=== PATIENT | male | born 1965 ===

== ENCOUNTER 2018-03-22 12:59 | Inpatient (IN) | payer BC, OTHER ==
[2018-03-22 13:04] VITALS: BMI 27.0
[2018-03-22] MEDS ORDERED: Sodium Chloride 0.9% 1,000 ML IV ONE (13:10)
[2018-03-22] MEDS ORDERED: Sodium Chloride 0.9% 1,000 ML ONE ×2 (13:30→20:32)
[2018-03-22 13:35] LABS: BASO % 0.4 % (0.0-2.0); EOS % 0.1 % (0.0-4.0); HEMOGLOBIN 15.2 g/dL (12.0-18.0); LYMPH # 1.8 K/uL (1.0-4.3); LYMPH % 14.3 % (20.0-40.0); MEAN CORPUSCULAR HEMOGLOBIN 32.4 pg (27.0-31.0); MEAN CORPUSCULAR HGB CONC 34.6 g/dL (33.0-37.0); MEAN PLATELET VOLUME 7.4 fL (7.2-11.7); MONO # 0.3 K/uL (0.0-0.8); MONO % 2.3 % (0.0-10.0); NEUT # 10.7 K/uL (1.8-7.0); NEUT % 82.9 % (50.0-75.0); RBC 4.7 Mil/uL (4.40-5.90); RED CELL DISTRIBUTION WIDTH 12.8 % (11.5-14.5); WHITE BLOOD COUNT 12.9 K/uL (4.8-10.8)
[2018-03-22 13:36] LABS: MEAN CELL VOLUME 93.5 fL (80.0-94.0)
[2018-03-22 13:38] LABS: SQUAMOUS EPITHIAL < 1 /hpf (0-5); URINE BILIRUBIN NEGATIVE (NEGATIVE); URINE BLOOD NEGATIVE (NEGATIVE); URINE CLARITY Clear (Clear); URINE COLOR Yellow (YELLOW); URINE GLUCOSE (UA) NORMAL (Normal); URINE LEUKOCYTE ESTERASE NEG Leu/uL (Negative); URINE PROTEIN NEGATIVE (NEGATIVE); URINE UROBILINOGEN NORMAL mg/dL (0.2-1.0)
[2018-03-22 13:56] LABS: ALB/GLOB RATIO 1.5 (1.0-2.1); ALBUMIN 4.5 g/dL (3.5-5.0); ALT/SGPT 32 U/L (21-72); AST/SGOT 25 U/L (17-59); BLOOD UREA NITROGEN 21 mg/dL (9-20); CALCIUM 10.7 mg/dl (8.6-10.4); GFR AFRICAN-AMERICAN > 60; GFR NON-AFRICAN AMERICAN > 60; LIPASE 71 U/L (23-300)
--- NOTE | 2018-03-22 14:05 | C.PDOC ---
History Of Present Illness 53 year old male with history of gluten intolerance presenting to ED complaining of epigastric and upper left/right abdominal pain since this morning. He states he ate pizza last night. Patient also feels nauseous, had loose bowel movement, and took pepto bismol with no relief. Patient tried to take an damion seltzer and vomited. Of note, patient has had intolerance in the past, but never this severe. Denies fever, blood in stool, shortness of breath. Time Seen by Provider: 03/22/18 13:04 Chief Complaint (Nursing): Abdominal Pain History Per: Patient History/Exam Limitations: no limitations Onset/Duration Of Symptoms: Hrs Current Symptoms Are (Timing): Still Present Context: Food Location Of Pain/Discomfort: Epigastric, Other (upper left/right abdomen) Radiation Of Pain To:: None Quality Of Discomfort: Cramping Associated Symptoms: Nausea, Vomiting, Diarrhea. denies: Fever Recent travel outside of the [place]: No Past Medical History Reviewed: Historical Data, Nursing Documentation, Vital Signs Vital Signs: Last Vital Signs Temp 98.7 F 03/22/18 19:29 Pulse 75 03/22/18 19:29 Resp 16 03/22/18 19:29 BP 127/71 03/22/18 19:29 Pulse Ox 100 03/22/18 19:31 Surgical History: No Surg Hx Family History: States: No Known Family Hx - Social History Hx Alcohol Use: Yes Hx Substance Use: Yes - Immunization History Hx Tetanus Toxoid Vaccination: Yes Hx Influenza Vaccination: No Hx Pneumococcal Vaccination: No Review Of Systems Constitutional: Negative for: Fever Cardiovascular: Negative for: Chest Pain Respiratory: Negative for: Shortness of Breath Gastrointestinal: Positive for: Nausea, Vomiting, Abdominal Pain (epigastric. Upper left/right), Diarrhea Genitourinary: Negative for: Frequency Neurological: Negative for: Weakness, Numbness Physical Exam - Physical Exam Appears: Non-toxic Skin: Warm, Dry Head: Atraumatic, Normacephalic Eye(s): bilateral: Normal Inspection Oral Mucosa: Moist Chest: Symmetrical Cardiovascular: Rhythm Regular Respiratory: Normal Breath Sounds Gastrointestinal/Abdominal: Tenderness (epigastric), No Guarding Neurological/Psych: Oriented x3 Gait: Steady ED Course And Treatment - Laboratory Results Result Diagrams: 03/22/18 13:33 03/22/18 13:33 Lab Interpretation: Abnormal (WBC elevated 12.9 with left shift, BUN 21, normal LFTs and Lipase) O2 Sat by Pulse Oximetry: 100 (RA) Pulse Ox Interpretation: Normal - CT Scan/US US abdomen Other Rad Studies (CT/US): Read By Radiologist, Radiology Report Reviewed CT/US Interpretation: FINDINGS: LIVER: Measures 15.9 cm. Normal echogenicity of the liver parenchyma. No mass. No intrahepatic bile duct dilatation. GALLBLADDER: Gallbladder is mildly distended but otherwise unremarkable appearing. COMMON BILE DUCT: Measures 3.0 mm. No stones. No dilatation. PANCREAS: Pancreas is completely obscured by overlying bowel/stomach gas. RIGHT KIDNEY: Measures 10.9cm. Normal echogenicity. No calculus, mass, or hydronephrosis. LEFT KIDNEY: Measures 10.6cm. Normal echogenicity. No calculus , mass, or hydronephrosis. SPLEEN: Normal in size and contour, measuring 8.3 cm. No mass. AORTA: No aneurysmal dilatation. IVC: Unremarkable. OTHER FINDINGS: None. IMPRESSION: Pancreas completely obscured by overlying gastrointestinal gas. There is moderate gallbladder distention with the gallbladder otherwise unremarkable appearing. Remainder the examination appears unremarkable. Progress Note: 3:30 Patient c/o mild improvement after Bentyl but now has recurrent pain with vomiting. Still has epigastric pain. Abdomen remains overall soft. Protonix and Pepcid ordered. Called Dr. Wilson 19:04. Automated message left number to call in order to page physician([phone]). That number was called and I was put on hold. 19:12 phone was answered and informed the physician will be paged and will call [facility] [place] back. Reevaluation Time: 19:30 Reassessment Condition: Improved (After Toradol. NGT ordered.) - Physician Consult Information Time Consulting Physician Contacted: 19:30 Physician Contacted: Jung Wilson Outcome Of Conversation: Patient to be admitted to his service for a proximal small bowel obstruction. Procedure: Blank - Time Time Performed: 19:53 - Procedure Procedure:: NGT insertion - Consent obtained: Consent obtained: Verbal - Performed by: Performed by:: Attending physician - Indications Indications(s):: bowel obstruction - Contraindications: Contraindications:: None - Patient Position Patient Position:: Sitting - Result Result: Successful - Patient Tolerated Procedure Patient Tolerated Procedure:: Well Medical Decision Making Medical Decision Making: Impression: epigastric abdominal pain Plan: * labs * Bentyl * Zofran * IV fluids * Urinalysis * Ultra Sound abdomen complete Disposition - Disposition Disposition: HOSPITALIZED Disposition Time: 19:31 Condition: STABLE - POA Present On Arrival: None - Clinical Impression Clinical Impression: Small bowel obstruction - Scribe Statement The provider has reviewed the documentation as recorded by the Walt Jade Provider Attestation: All medical record entries made by the Walt were at my direction and personally dictated by me. I have reviewed the chart and agree that the record accurately reflects my personal performance of the history, physical exam, medical decision making, and the department course for this patient. I have also personally directed, reviewed, and agree with the discharge instructions and disposition.
--- NOTE | 2018-03-22 15:07 | US ---
Date of service: 03/22/2018 HISTORY: abd pain COMPARISON: None. TECHNIQUE: Sonographic evaluation of the abdomen. FINDINGS: LIVER: Measures 15.9 cm. Normal echogenicity of the liver parenchyma. No mass. No intrahepatic bile duct dilatation. GALLBLADDER: Gallbladder is mildly distended but otherwise unremarkable appearing. COMMON BILE DUCT: Measures 3.0 mm. No stones. No dilatation. PANCREAS: Pancreas is completely obscured by overlying bowel/stomach gas. RIGHT KIDNEY: Measures 10.9cm. Normal echogenicity. No calculus, mass, or hydronephrosis. LEFT KIDNEY: Measures 10.6cm. Normal echogenicity. No calculus, mass, or hydronephrosis. SPLEEN: Normal in size and contour, measuring 8.3 cm. No mass. AORTA: No aneurysmal dilatation. IVC: Unremarkable. OTHER FINDINGS: None. IMPRESSION: Pancreas completely obscured by overlying gastrointestinal gas. There is moderate gallbladder distention with the gallbladder otherwise unremarkable appearing. Remainder the examination appears unremarkable.
[2018-03-22] MEDS ORDERED: Iohexol 240 (50 ml) PO ONE (16:52)
[2018-03-22] MEDS ORDERED: Iohexol 240 (50 ml) ONE (16:55)
[2018-03-22] MEDS ORDERED: Iodixanol 320 MG/ML 100 ML BOTTLE IV ONE (18:10)
[2018-03-22] MEDS ORDERED: Morphine 4 MG/ML VIAL IV STA (20:25)
[2018-03-22] MEDS: Sodium Chloride 0.9% 1,000 ML IV SCH (20:32)
[2018-03-22 22:27] LABS: ABG ALLEN TEST POS; ARTERIAL BLOOD GAS HCO3 24.7 mmol/L (21-28); ARTERIAL BLOOD GAS O2 SAT 97.6 % (95-98); ARTERIAL BLOOD GAS PCO2 37 mm/Hg (35-45); ARTERIAL BLOOD GAS PH 7.42 (7.35-7.45); ARTERIAL BLOOD GAS PO2 76 mm/Hg (80-100); ARTERIAL BLOOD GAS TCO2 25.1 mmol/L (22-28)
[2018-03-22 22:32] LABS: INR 1.2; PROTHROMBIN TIME 12.8 SECONDS (9.7-12.2)
--- NOTE | 2018-03-22 23:05 | CP.PCM.HP ---
<Diamond Segundo - Last Filed: 03/22/18 23:45> History of Present Illness - History of Present Illness History of Present Illness: SURGERY HISTORY & PHYSICAL FOR DR. CALDERA 53M with PMHx of GERD, IBS, gluten intolerance presents to ED with abdominal pain. Pt states the pain began this AM in the epigastric region. It was crampy. He took pepto bismol and damion seltzer without relief. He reports loose non bloody stool x2 and vomiting x2. Last flatus this AM. Pt reports that he has gluten intolerance (but not celiac disease) and he avoids foods with gluten and dairy most of the time. However, last night, he had pizza and IPA beer which he believes may have contributed to his symptoms. PMHx: GERD, IBS, gluten intolerance Surgeries: EGD & colonoscopy 2 years ago- normal per pt Allergies: none Meds: multivitamin Sochx: smoke 3 cigarettes per day, drinks 1-2 liquor drinks per day and 5-6 on weekends at social functions Present on Admission - Present on Admission Any Indicators Present on Admission: No Review of Systems - Review of Systems All systems: reviewed and no additional remarkable complaints except (as per hpi ) Past Patient History - Past Medical History & Family History Past Medical History?: Yes - Past Social History Smoking Status: Current Some Days Smoker Alcohol: > 2 Drinks/Day Drugs: Denies Home Situation {Lives}: With Family - MUSCULOSKELETAL/RHEUMATOLOGICAL Hx Falls: No - GASTROINTESTINAL Hx Gastroesophageal Reflux: Yes Hx Irritable Bowel: Yes - PSYCHIATRIC Hx Substance Use: Yes (social) - SURGICAL HISTORY Hx Surgeries: No - ANESTHESIA Hx Anesthesia: No Hx Anesthesia Reactions: No Hx Malignant Hyperthermia: No Meds Allergies/Adverse Reactions: Allergies Allergy/AdvReac Type Severity Reaction Status Date / Time No Known Allergies Allergy Verified 03/22/18 13:04 Physical Exam - Constitutional Appears: Well, Non-toxic, No Acute Distress - Head Exam Head Exam: ATRAUMATIC, NORMAL INSPECTION - Eye Exam Eye Exam: EOMI, Normal appearance - Respiratory Exam Respiratory Exam: NORMAL BREATHING PATTERN. absent: Respiratory Distress - Cardiovascular Exam Cardiovascular Exam: +S1, +S2 - GI/Abdominal Exam GI & Abdominal Exam: Soft, Tenderness (mild epigastric tenderness). absent: Distended, Firm, Guarding, Hernia, Rebound, Rigid - Neurological Exam Neurological exam: Alert, CN II-XII Intact, Oriented x3 - Psychiatric Exam Psychiatric exam: Normal Affect, Normal Mood - Skin Skin Exam: Dry, Normal Color, Warm Results - Vital Signs Recent Vital Signs: Last Vital Signs Temp 98.5 F 03/22/18 21:42 Pulse 95 H 03/22/18 21:42 Resp 20 03/22/18 21:42 BP 126/83 03/22/18 21:42 Pulse Ox 95 03/22/18 21:42 - Labs Result Diagrams: 03/22/18 13:33 03/22/18 13:33 Labs: Laboratory Results - last 24 hr 03/22/18 03/22/18 03/22/18 13:33 13:33 13:33 WBC 12.9 H RBC 4.70 Hgb 15.2 Hct 44.0 MCV 93.5 D MCH 32.4 H MCHC 34.6 RDW 12.8 Plt Count 283 MPV 7.4 Neut % (Auto) 82.9 H Lymph % (Auto) 14.3 L [place] % (Auto) 2.3 Eos % (Auto) 0.1 Baso % (Auto) 0.4 Neut # (Auto) 10.7 H Lymph # (Auto) 1.8 [place] # (Auto) 0.3 Eos # (Auto) 0.0 Baso # (Auto) 0.0 PT INR APTT Puncture Site pCO2 pO2 HCO3 ABG pH ABG Total CO2 ABG O2 Saturation ABG Base Excess Adam Test ABG Potassium A-a O2 Difference Respiratory Index Glucose Lactate Liter Flow FiO2 Sodium 142 Potassium 4.5 Chloride 100 Carbon Dioxide 31 H Anion Gap 16 BUN 21 H Creatinine 0.8 Est GFR ( Amer) > 60 Est GFR (Non-Af Amer) > 60 Random Glucose 111 H Calcium 10.7 H Total Bilirubin 0.5 AST 25 ALT 32 Alkaline Phosphatase 68 Total Protein 7.6 Albumin 4.5 Globulin 3.1 Albumin/Globulin Ratio 1.5 Lipase 71 Arterial Blood Potassium Urine Color Yellow Urine Clarity Clear Urine pH 5.0 Ur Specific [place] 1.024 Urine Protein Negative Urine Glucose (UA) Normal Urine Ketones Negative Urine Blood Negative Urine Nitrate Negative Urine Bilirubin Negative Urine Urobilinogen Normal Ur Leukocyte Esterase Neg Urine RBC (Auto) 1 Ur Squamous Epith Cells < 1 03/22/18 03/22/18 22:21 22:25 WBC RBC Hgb Hct MCV MCH MCHC RDW Plt Count MPV Neut % (Auto) Lymph % (Auto) [place] % (Auto) Eos % (Auto) Baso % (Auto) Neut # (Auto) Lymph # (Auto) [place] # (Auto) Eos # (Auto) Baso # (Auto) PT 12.8 H INR 1.2 APTT 31 Puncture Site Rba pCO2 37 pO2 76 L HCO3 24.7 ABG pH 7.42 ABG Total CO2 25.1 ABG O2 Saturation 97.6 ABG Base Excess -0.2 Adam Test Pos ABG Potassium 3.6 A-a O2 Difference 27.0 Respiratory Index 0.4 Glucose 125 H Lactate 1.0 Liter Flow 0 FiO2 21.0 Sodium 138.0 Potassium Chloride 104.0 Carbon Dioxide Anion Gap BUN Creatinine Est GFR ( Amer) Est GFR (Non-Af Amer) Random Glucose Calcium Total Bilirubin AST ALT Alkaline Phosphatase Total Protein Albumin Globulin Albumin/Globulin Ratio Lipase Arterial Blood Potassium 3.6 Urine Color Urine Clarity Urine pH Ur Specific [place] Urine Protein Urine Glucose (UA) Urine Ketones Urine Blood Urine Nitrate Urine Bilirubin Urine Urobilinogen Ur Leukocyte Esterase Urine RBC (Auto) Ur Squamous Epith Cells Assessment & Plan - Assessment and Plan (Free Text) Assessment: 53M with PMHx of GERD, IBS, gluten intolerance presents with abdominal pain. DDx SBO vs enteritis vs mesenteric adenitis - Afebrile, VSS - WBC 12.9 - ABG WNL, Lactate normal - CT: small hiatal hernia, dilated loops of small bowel with air fluid levels & adjacent mesenteric edema/stranding - Keep NPO with IV fluids - NG tube placed - Zosyn - Pain medication PRN - Serial abdominal exams - Plan discussed with Dr. Steve Segundo PGY-4 <Jung Caldera - Last Filed: 03/25/18 10:27> Results - Vital Signs Recent Vital Signs: Last Vital Signs Temp 97.3 F L 03/24/18 15:00 Pulse 62 03/24/18 15:00 Resp 20 03/24/18 15:00 BP 158/82 H 03/24/18 15:00 Pulse Ox 100 03/24/18 15:00 - Labs Result Diagrams: 03/24/18 14:00 03/24/18 14:00 Labs: Laboratory Results - last 24 hr 03/24/18 03/24/18 14:00 14:00 WBC 6.9 RBC 4.51 Hgb 14.4 Hct 42.8 MCV 94.8 H MCH 32.0 H MCHC 33.8 RDW 13.2 Plt Count 229 MPV 7.8 Neut % (Auto) 60.0 Lymph % (Auto) 32.0 [place] % (Auto) 6.4 Eos % (Auto) 0.7 Baso % (Auto) 0.9 Neut # (Auto) 4.1 Lymph # (Auto) 2.2 [place] # (Auto) 0.4 Eos # (Auto) 0.0 Baso # (Auto) 0.1 Sodium 142 Potassium 3.7 Chloride 102 Carbon Dioxide 26 Anion Gap 17 BUN 15 Creatinine 0.9 Est GFR ( Amer) > 60 Est GFR (Non-Af Amer) > 60 Random Glucose 117 H Calcium 8.9 Phosphorus 3.4 Magnesium 1.8 Assessment & Plan - Assessment and Plan (Free Text) Plan: I personally saw and examined the patient with the resident staff and agree with the above assessment and plan. I personally reviewed the available diagnostic images and imaging reports. First episode of acute onset severe epigastric pain after week long of binge eating and drinking outside of normal diet. CT scan does show proximal dilated loops and edema, as well as enhancement of colonic mucosa. No previous surgical history but does have IBS, gluten sensitivey, lactose intolerance. It is possible that this could be some type of internal hernia (rare), but more likely enteropathy, IBD, or possible eosinophillic enteritis. For now he feels much better since having NGT placed and decompressing upper GIT. Abd is soft, non-distended and non-tender currently. Continue NGT, NPI, IVF, Antibiotics. - Date & Time Date: 03/22/18 Time: 23:15
[2018-03-22] MEDS: Piperacill/Tazo 3.375gm in Dex 3.375 GM/50 ML BAG IVPB SCH (23:09)
[2018-03-23] MEDS: Piperacill/Tazo 3.375gm in Dex 3.375 GM/50 ML BAG IVPB SCH ×4 (04:00→21:49)
[2018-03-23] MEDS: Sodium Chloride 0.9% 1,000 ML IV SCH ×4 (04:17→21:07)
--- NOTE | 2018-03-23 08:21 | RAD ---
Date of service: 03/22/2018 HISTORY: NG tube placement COMPARISON: Noncontrast chest CT 02/21/2017. FINDINGS: Nasogastric tube is identified coiled in the abdomen. LUNGS: No active pulmonary disease. PLEURA: No significant pleural effusion identified, no pneumothorax apparent. CARDIOVASCULAR: Normal. OSSEOUS STRUCTURES: No significant abnormalities. VISUALIZED UPPER ABDOMEN: Normal. OTHER FINDINGS: None. IMPRESSION: No definite acute cardiopulmonary disease.
[2018-03-23 08:56] LABS: BASO # 0.1 K/uL (0.0-0.2); BASO % 0.7 % (0.0-2.0); EOS % 0.2 % (0.0-4.0); HEMOGLOBIN 13.7 g/dL (12.0-18.0); LYMPH # 2.7 K/uL (1.0-4.3); LYMPH % 22.3 % (20.0-40.0); MEAN CELL VOLUME 93.8 fL (80.0-94.0); MEAN CORPUSCULAR HEMOGLOBIN 32.7 pg (27.0-31.0); MEAN CORPUSCULAR HGB CONC 34.8 g/dL (33.0-37.0); MEAN PLATELET VOLUME 7.9 fL (7.2-11.7); MONO % 8.3 % (0.0-10.0); NEUT # 8.3 K/uL (1.8-7.0); NEUT % 68.5 % (50.0-75.0); RBC 4.19 Mil/uL (4.40-5.90); RED CELL DISTRIBUTION WIDTH 13.3 % (11.5-14.5); WHITE BLOOD COUNT 12.1 K/uL (4.8-10.8)
[2018-03-23 09:06] LABS: BLOOD UREA NITROGEN 22 mg/dL (9-20); CALCIUM 8.6 mg/dl (8.6-10.4); GFR AFRICAN-AMERICAN > 60; GFR NON-AFRICAN AMERICAN > 60
--- NOTE | 2018-03-23 10:24 | CP.PCM.PN ---
Subjective - Date & Time of Evaluation Date of Evaluation: 03/23/18 Time of Evaluation: 07:00 - Subjective Subjective: SURGERY PROGRESS NOTE FOR DR. CALDERA Patient seen examined at bedside. Pt reports passing a lot of flatus. He had a small watery BM last night. Denies nausea or vomiting. Denies abdominal pain but feels "sore". Ambulating to the bathroom. Objective - Vital Signs/Intake and Output Vital Signs (last 24 hours): Temp Pulse Resp BP Pulse Ox 98.0 F 72 20 122/80 95 03/23/18 07:00 03/23/18 07:00 03/23/18 07:00 03/23/18 07:00 03/23/18 07:00 Intake and Output: 03/23/18 03/23/18 06:59 18:59 Intake Total 1000 Output Total 800 Balance 200 - Medications Medications: Current Medications Sodium Chloride (Sodium Chloride 0.9%) 1,000 mls @ 125 mls/hr IV .Q8H [facility] Last Admin: 03/23/18 07:02 Dose: 125 mls/hr Piperacillin Sod/Tazobactam Sod (Zosyn 3.375 Gm Iv Premix) 3.375 gm in 50 mls @ 100 mls/hr IVPB Q6H [facility] PRN Reason: Protocol Last Admin: 03/23/18 04:00 Dose: 100 mls/hr Ketorolac Tromethamine (Toradol) 30 mg IVP Q6 PRN PRN Reason: Pain, moderate (4-7) Morphine Sulfate (Morphine) 2 mg IVP Q4H PRN PRN Reason: Pain, severe (8-10) Last Admin: 03/23/18 04:08 Dose: 2 mg Ondansetron HCl (Zofran Inj) 4 mg IVP Q4H PRN PRN Reason: Nausea/Vomiting Pantoprazole Sodium (Protonix Inj) 40 mg IVP DAILY [facility] - Labs Labs: 03/23/18 08:46 03/23/18 08:46 PT 12.8 SECONDS (9.7-12.2) H 03/22/18 22:21 INR 1.2 03/22/18 22:21 APTT 31 SECONDS (21-34) 03/22/18 22:21 - Constitutional Appears: Well, Non-toxic, No Acute Distress - Head Exam Head Exam: ATRAUMATIC, NORMAL INSPECTION - Eye Exam Eye Exam: EOMI, Normal appearance - Respiratory Exam Respiratory Exam: NORMAL BREATHING PATTERN. absent: Respiratory Distress - Cardiovascular Exam Cardiovascular Exam: +S1, +S2 - GI/Abdominal Exam GI & Abdominal Exam: Soft. absent: Distended, Firm, Guarding, Rigid, Tenderness , Rebound Additional comments: NG tube in place with 500cc output since insertion - Neurological Exam Neurological Exam: Alert, Awake, Oriented x3 - Psychiatric Exam Psychiatric exam: Normal Affect, Normal Mood - Skin Skin Exam: Dry, Warm Assessment and Plan - Assessment and Plan (Free Text) Assessment: 53M with PMHx of GERD, IBS, gluten intolerance presents with abdominal pain. DDx SBO vs enteritis vs mesenteric adenitis - Afebrile, VSS - WBC 12.1 today - ABG WNL, Lactate normal - Keep NPO with IV fluids - Pt had + flatus and BM - May clamp NG tube, check residuals in 4 hours and remove if low residuals - Continue Zosyn - Serial abdominal exams - Discussed case with Dr. Ordoñez, pt's GI doctor. Pt may follow up with him in his office on Saturday - Plan discussed with Dr. Steve Segundo PGY-4
--- NOTE | 2018-03-23 11:14 | CT ---
Date of service: 03/22/2018 PROCEDURE: CT Abdomen and Pelvis with contrast HISTORY: epigastric abdominal pain COMPARISON: None. TECHNIQUE: Following oral and intravenous contrast administration, a CT examination of the abdomen and pelvis performed from the domes of the diaphragms to the symphysis pubis with reformatted datasets provided not only axial but also sagittal and coronal series. Contrast dose: Visipaque 320, 100 cc Radiation dose: Total exam DLP = 813.18 mGy-cm. This CT exam was performed using one or more of the following dose reduction techniques: Automated exposure control, adjustment of the mA and/or kV according to patient size, and/or use of iterative reconstruction technique. FINDINGS: LOWER THORAX: Unremarkable. LIVER: Unremarkable. No gross lesion or ductal dilatation. GALLBLADDER AND BILE DUCTS: Unremarkable. PANCREAS: Unremarkable. No gross lesion or ductal dilatation. SPLEEN: Unremarkable. ADRENALS: Unremarkable. No mass. KIDNEYS AND URETERS: Unremarkable. No hydronephrosis. No solid mass. VASCULATURE: Unremarkable. No aortic aneurysm. BOWEL: Central small bowel loops appear distended with fluid and a limited amount of gas. The stomach is distended with retained oral contrast contrast material. Edematous changes seen in the central small bowel Mesentery with distal large and small bowel collapse. The findings are most compatible with a central small-bowel obstruction, possibly due to an internal hernia. Diminished density of the gamboa of small-bowel may indicate ischemia. Clinically correlate further. Note is made of fatty sub mucosal changes throughout the colon which may reflect chronic inflammatory bowel process. APPENDIX: Normal appendix. PERITONEUM: Trace ascites identified in the pelvis. No free intra peritoneal gas. LYMPH NODES: Unremarkable. No enlarged lymph nodes. BLADDER: Unremarkable. REPRODUCTIVE: Unremarkable. BONES: No acute fracture. OTHER FINDINGS: None. IMPRESSION: 1. Findings suggests of a central small bowel obstruction, possibly by an internal hernia. Central small bowel mesenteric edema with limited pelvic ascites noted. Ischemic changes in distended small bowel loops are not completely excluded and further clinical correlation is advised. 2. Submucosal fatty changes throughout the colon may indicate inflammatory bowel disease. Concordant preliminary report from [facility], 03/22/2018. Further, pertinent findings were discussed with Dr. pam adams by Dr. Lopez (from [facility]) with written down and read back verification 03/22/2018 6:52 p.m..
[2018-03-24] MEDS: Sodium Chloride 0.9% 1,000 ML IV SCH ×2 (02:15→04:45)
[2018-03-24] MEDS: Piperacill/Tazo 3.375gm in Dex 3.375 GM/50 ML BAG IVPB SCH ×3 (04:20→17:37)
--- NOTE | 2018-03-24 10:32 | CP.PCM.PN ---
<Diamond Segundo - Last Filed: 03/24/18 10:33> Subjective - Date & Time of Evaluation Date of Evaluation: 03/24/18 Time of Evaluation: 06:00 - Subjective Subjective: GENERAL SURGERY PROGRESS NOTE FOR DR. CALDERA Patient seen and examined at bedside. Yesterday, the NG tube was removed and patient was advanced to CLD. Pt is tolerating CLD. Denies nausea or vomiting. He is passing a lot of flatus. No Bm since the night of admission. Pt denies abdominal pain. He is ambulating in the halls. Objective - Vital Signs/Intake and Output Vital Signs (last 24 hours): Temp Pulse Resp BP Pulse Ox 98.1 F 63 18 123/78 98 03/24/18 07:20 03/24/18 07:20 03/24/18 07:20 03/24/18 07:20 03/24/18 07:20 Intake and Output: 03/24/18 03/24/18 06:59 18:59 Intake Total 1200 Output Total 700 Balance 500 - Medications Medications: Current Medications Sodium Chloride (Sodium Chloride 0.9%) 1,000 mls @ 125 mls/hr IV .Q8H [facility] Last Admin: 03/24/18 04:45 Dose: Not Given Piperacillin Sod/Tazobactam Sod (Zosyn 3.375 Gm Iv Premix) 3.375 gm in 50 mls @ 100 mls/hr IVPB Q6H [facility] PRN Reason: Protocol Last Admin: 03/24/18 10:29 Dose: 100 mls/hr Ketorolac Tromethamine (Toradol) 30 mg IVP Q6 PRN PRN Reason: Pain, moderate (4-7) Morphine Sulfate (Morphine) 2 mg IVP Q4H PRN PRN Reason: Pain, severe (8-10) Last Admin: 03/23/18 04:08 Dose: 2 mg Ondansetron HCl (Zofran Inj) 4 mg IVP Q4H PRN PRN Reason: Nausea/Vomiting Pantoprazole Sodium (Protonix Inj) 40 mg IVP DAILY [facility] Last Admin: 03/24/18 09:27 Dose: 40 mg - Labs Labs: 03/23/18 08:46 03/23/18 08:46 PT 12.8 SECONDS (9.7-12.2) H 03/22/18 22:21 INR 1.2 03/22/18 22:21 APTT 31 SECONDS (21-34) 03/22/18 22:21 - Constitutional Appears: Well, Non-toxic, No Acute Distress - Head Exam Head Exam: ATRAUMATIC - Respiratory Exam Respiratory Exam: NORMAL BREATHING PATTERN. absent: Respiratory Distress - Cardiovascular Exam Cardiovascular Exam: +S1, +S2 - GI/Abdominal Exam GI & Abdominal Exam: Soft. absent: Distended, Firm, Guarding, Rigid, Tenderness , Rebound - Neurological Exam Neurological Exam: Alert, Awake, Oriented x3 - Psychiatric Exam Psychiatric exam: Normal Affect, Normal Mood - Skin Skin Exam: Dry, Warm Assessment and Plan - Assessment and Plan (Free Text) Assessment: 53M with PMHx of GERD, IBS, gluten intolerance presents with abdominal pain. DDx SBO vs enteritis vs mesenteric adenitis - Afebrile, VSS - Will FU Am labs - Pt had + flatus - Tolerating CLD, will advance to Regular/gluten free diet - Serial abdominal exams - Discussed case with Dr. Ordoñez, pt's GI doctor. Pt may follow up with him in his office on Saturday - Plan discussed with Dr. Steve Segundo PGY-4 <Jung Caldera - Last Filed: 03/25/18 10:52> Subjective - Subjective Subjective: Seen and examined with resident staff. Obstruction resolved, wbc normal, clinically at baseline. Discussed possible etiologies including intrinsic bowel issues vs. mechanical obstruction from internal hernia vs. lead point in mesentery.Work-up can be done as outpatient. I spoke with Dr. Ordoñez regarding workup for IBD, enteropathy, etc and consider double balloon enteroscopy. Patient to follow up with him this week. If symptoms return, instructed to return to ED and may need exploratory laparoscopy. Patient understands the plan and ready for discharge. Objective - Vital Signs/Intake and Output Vital Signs (last 24 hours): Temp Pulse Resp BP Pulse Ox 97.3 F L 62 20 158/82 H 100 03/24/18 15:00 03/24/18 15:00 03/24/18 15:00 03/24/18 15:00 03/24/18 15:00 - Labs Labs: 03/24/18 14:00 03/24/18 14:00 PT 12.8 SECONDS (9.7-12.2) H 03/22/18 22:21 INR 1.2 03/22/18 22:21 APTT 31 SECONDS (21-34) 03/22/18 22:21
[2018-03-24] MEDS ORDERED: Tramadol 25 mg PO PRN (10:35)
[2018-03-24 14:09] LABS: BASO # 0.1 K/uL (0.0-0.2); BASO % 0.9 % (0.0-2.0); EOS % 0.7 % (0.0-4.0); HEMOGLOBIN 14.4 g/dL (12.0-18.0); LYMPH # 2.2 K/uL (1.0-4.3); MEAN CELL VOLUME 94.8 fL (80.0-94.0); MEAN CORPUSCULAR HGB CONC 33.8 g/dL (33.0-37.0); MEAN PLATELET VOLUME 7.8 fL (7.2-11.7); MONO # 0.4 K/uL (0.0-0.8); MONO % 6.4 % (0.0-10.0); NEUT # 4.1 K/uL (1.8-7.0); RBC 4.51 Mil/uL (4.40-5.90); RED CELL DISTRIBUTION WIDTH 13.2 % (11.5-14.5); WHITE BLOOD COUNT 6.9 K/uL (4.8-10.8)
[2018-03-24 14:38] LABS: BLOOD UREA NITROGEN 15 mg/dL (9-20); CALCIUM 8.9 mg/dl (8.6-10.4); GFR AFRICAN-AMERICAN > 60; GFR NON-AFRICAN AMERICAN > 60
[2018-03-24 15:34] VITALS: BP 158/82; PULSE 62; RESP 20; TEMP 97.3; O2SAT 100
--- NOTE | 2018-03-24 16:23 | CP.PCM.DIS ---
Provider - Provider Date of Admission: 03/22/18 19:34 Attending physician: Jung Wilson MD Time Spent in preparation of Discharge (in minutes): 30 Diagnosis - Discharge Diagnosis (1) Small bowel obstruction Status: Acute (2) Enteritis Status: Acute (3) Mesenteric adenitis Status: Acute Hospital Course - Lab Results Lab Results: Most Recent Lab Values WBC 6.9 K/uL (4.8-10.8) 03/24/18 14:00 RBC 4.51 Mil/uL (4.40-5.90) 03/24/18 14:00 Hgb 14.4 g/dL (12.0-18.0) 03/24/18 14:00 Hct 42.8 % (35.0-51.0) 03/24/18 14:00 MCV 94.8 fL (80.0-94.0) H 03/24/18 14:00 MCH 32.0 pg (27.0-31.0) H 03/24/18 14:00 MCHC 33.8 g/dL (33.0-37.0) 03/24/18 14:00 RDW 13.2 % (11.5-14.5) 03/24/18 14:00 Plt Count 229 K/uL (130-400) 03/24/18 14:00 MPV 7.8 fL (7.2-11.7) 03/24/18 14:00 Neut % (Auto) 60.0 % (50.0-75.0) 03/24/18 14:00 Lymph % (Auto) 32.0 % (20.0-40.0) 03/24/18 14:00 Rice % (Auto) 6.4 % (0.0-10.0) 03/24/18 14:00 Eos % (Auto) 0.7 % (0.0-4.0) 03/24/18 14:00 Baso % (Auto) 0.9 % (0.0-2.0) 03/24/18 14:00 Neut # (Auto) 4.1 K/uL (1.8-7.0) 03/24/18 14:00 Lymph # (Auto) 2.2 K/uL (1.0-4.3) 03/24/18 14:00 Rice # (Auto) 0.4 K/uL (0.0-0.8) 03/24/18 14:00 Eos # (Auto) 0.0 K/uL (0.0-0.7) 03/24/18 14:00 Baso # (Auto) 0.1 K/uL (0.0-0.2) 03/24/18 14:00 PT 12.8 SECONDS (9.7-12.2) H 03/22/18 22:21 INR 1.2 03/22/18 22:21 APTT 31 SECONDS (21-34) 03/22/18 22:21 Puncture Site Rba 03/22/18 22:25 pCO2 37 mm/Hg (35-45) 03/22/18 22:25 pO2 76 mm/Hg (80-100) L 03/22/18 22:25 HCO3 24.7 mmol/L (21-28) 03/22/18 22:25 ABG pH 7.42 (7.35-7.45) 03/22/18 22:25 ABG Total CO2 25.1 mmol/L (22-28) 03/22/18 22:25 ABG O2 Saturation 97.6 % (95-98) 03/22/18 22:25 ABG Base Excess -0.2 mmol/L (-2.0-3.0) 03/22/18 22:25 Adam Test Pos 03/22/18 22:25 ABG Potassium 3.6 mmol/L (3.6-5.2) 03/22/18 22:25 A-a O2 Difference 27.0 mm/Hg 03/22/18 22:25 Respiratory Index 0.4 03/22/18 22:25 Sodium 138.0 mmol/l (132-148) 03/22/18 22:25 Chloride 104.0 mmol/L (98-107) 03/22/18 22:25 Glucose 125 mg/dl (75-110) H 03/22/18 22:25 Lactate 1.0 mmol/L (0.7-2.1) 03/22/18 22:25 Liter Flow 0 03/22/18 22:25 FiO2 21.0 % 03/22/18 22:25 Sodium 142 mmol/L (132-148) 03/24/18 14:00 Potassium 3.7 mmol/L (3.6-5.2) 03/24/18 14:00 Chloride 102 mmol/L (98-107) 03/24/18 14:00 Carbon Dioxide 26 mmol/L (22-30) 03/24/18 14:00 Anion Gap 17 (10-20) 03/24/18 14:00 BUN 15 mg/dL (9-20) 03/24/18 14:00 Creatinine 0.9 mg/dL (0.8-1.5) 03/24/18 14:00 Est GFR ( Amer) > 60 03/24/18 14:00 Est GFR (Non-Af Amer) > 60 03/24/18 14:00 Random Glucose 117 mg/dL (75-110) H 03/24/18 14:00 Calcium 8.9 mg/dl (8.6-10.4) 03/24/18 14:00 Phosphorus 3.4 mg/dL (2.5-4.5) 03/24/18 14:00 Magnesium 1.8 mg/dL (1.6-2.3) 03/24/18 14:00 Total Bilirubin 0.5 mg/dL (0.2-1.3) 03/22/18 13:33 AST 25 U/L (17-59) 03/22/18 13:33 ALT 32 U/L (21-72) 03/22/18 13:33 Alkaline Phosphatase 68 U/L (38-126) 03/22/18 13:33 Total Protein 7.6 g/dL (6.3-8.3) 03/22/18 13:33 Albumin 4.5 g/dL (3.5-5.0) 03/22/18 13:33 Globulin 3.1 gm/dL (2.2-3.9) 03/22/18 13:33 Albumin/Globulin Ratio 1.5 (1.0-2.1) 03/22/18 13:33 Lipase 71 U/L (23-300) 03/22/18 13:33 Arterial Blood Potassium 3.6 mmol/L (3.6-5.2) 03/22/18 22:25 Urine Color Yellow (YELLOW) 03/22/18 13:33 Urine Clarity Clear (Clear) 03/22/18 13:33 Urine pH 5.0 (5.0-8.0) 03/22/18 13:33 Ur Specific [place] 1.024 (1.003-1.030) 03/22/18 13:33 Urine Protein Negative mg/dL (NEGATIVE) 03/22/18 13:33 Urine Glucose (UA) Normal mg/dL (Normal) 03/22/18 13:33 Urine Ketones Negative mg/dL (NEGATIVE) 03/22/18 13:33 Urine Blood Negative (NEGATIVE) 03/22/18 13:33 Urine Nitrate Negative (NEGATIVE) 03/22/18 13:33 Urine Bilirubin Negative (NEGATIVE) 03/22/18 13:33 Urine Urobilinogen Normal mg/dL (0.2-1.0) 03/22/18 13:33 Ur Leukocyte Esterase Neg Rene/uL (Negative) 03/22/18 13:33 Urine RBC (Auto) 1 /hpf (0-3) 03/22/18 13:33 Ur Squamous Epith Cells < 1 /hpf (0-5) 03/22/18 13:33 - Hospital Course Hospital Course: 53M presents w. abd pain 2/2 SBO vs enteritis vs mesenteric adenitis. Pts symptoms resolved w. conservative management. Pt is tolerating diet. No N/V. No abdominal pain. Pt is passing flatus and having loosely formed stools. Discharge Exam - Head Exam Head Exam: ATRAUMATIC, NORMOCEPHALIC - Eye Exam Eye Exam: EOMI - ENT Exam ENT Exam: Mucous Membranes Moist - Neck Exam Neck exam: Full Rom - Respiratory Exam Respiratory Exam: NORMAL BREATHING PATTERN. absent: Accessory Muscle Use, Respiratory Distress - GI/Abdominal Exam GI & Abdominal Exam: Soft. absent: Distended, Firm, Guarding, Rebound, Rigid, Tenderness - Neurological Exam Neurological exam: Alert, Oriented x3 - Psychiatric Exam Psychiatric exam: Normal Affect, Normal Mood - Skin Skin Exam: Dry, Warm Discharge Plan - Follow Up Plan Condition: STABLE Disposition: HOME/ ROUTINE Patient education suggested?: Yes Instructions: Small Bowel Resection (DC) Additional Instructions: Activity and diet as tolerated Follow up with GI If symptoms worsen, return to the ED D/W attending Referrals: Kel Ordoñez MD, PhD [Medical Doctor] -
== END 2018-03-24 17:38 | disposition home or self-care (01) | DRG 389 ==
LOC: C.ER 12:59 → C.9E 19:34 → EEVIPCON 19:34 → C.6T 20:47
PROVIDERS: ADMIT Surgery; ATTEND Surgery
DX: K56.699 Other intestinal obstruction unspecified as to partial versus complete obstruction (principal); K90.41 Non-celiac gluten sensitivity; F17.210 Nicotine dependence, cigarettes, uncomplicated; I88.0 Nonspecific mesenteric lymphadenitis; K21.9 Gastro-esophageal reflux disease without esophagitis